=== PATIENT | male | born 1985 | race African-American/Black ===

== ENCOUNTER 2016-07-07 12:23 | Emergency (ER) | payer OTHER ==
--- NOTE | ~2016-07-07 | CR142 ---
[facility] [place] [facility] RADIOLOGY TEXT RESULTS PATIENT: ROBBIN MABRY LOCATION: SED : 87 UNIT #: [id number] AGE: [address]: Andree Lieberman MD SEX: M ORDER DR: [id number] [address] [address] [id number] MR#: [id number] Acc #: [id number] NAME: ROBBIN MABRY : 1985 SEX: M STUDY DATE/TIME: 07/07/2016 12:42 UNIT: SED ROOM: STUDY DESCRIPTION: CR Hand Min 3 Views Rt Attending Physician: Andree Lieberman M.D. Ordering Physician: Andree Lieberman M.D. Primary Care Physician: No Primary Care Physician MEDICAL IMAGING REPORT This report is preliminary unless electronic signature is present. EXAM Right hand 3 views INDICATION 31-year-old male with history of pain and laceration to hand after hitting wall and cutting finger with knife last night. COMPARISON No comparisons. FINDINGS There is a questionable nondisplaced fracture of the base of the middle phalanx of the fifth finger. It is only seen on the AP view and not seen on any other views. Please correlate clinically with the location of the patient's pain. There is some soft tissue swelling adjacent to the fifth metacarpal. There is no dislocation. The joint spaces are maintained. IMPRESSION 1. There is a questionable tiny nondisplaced fracture at the base of the middle phalanx of the fifth finger. Please correlate clinically with location of the patient's pain. This is only seen on the AP view. 2. Soft tissue swelling adjacent to the fifth metacarpal. Dictated by... Stuart Orozco M.D. THIS IS AN ELECTRONICALLY VERIFIED REPORT Stuart Orozco M.D. at 07/07/2016 3:34 PM JOSE/ravi TD: 07/07/2016 15:16 [facility] A Service [facility] RADIOLOGY TEXT RESULTS PATIENT: ROBBIN MABRY LOCATION: [facility] : [birth year] UNIT #: [id number] AGE: [address]: Andree Lieberman MD SEX: M ORDER DR: JOB #: [id number] MEDICAL IMAGING REPORT
[~2016-07-07 12:23] MED LIST: ALBUTEROL INHALER INH; BACLOFEN PO; FLONASE 0.05% N16 G1; HYDROMET SYRUP PO; NO MEDICATIONS; NORCO 5MG/325MG PO; PREDNISONE PO; SUDAFED PO; VOLTAREN75 MG PO; ZITHROMAX PO
== END 2016-07-07 13:30 | disposition home or self-care (01) ==
LOC: SED 12:23
DX: S61.217A Laceration without foreign body of left little finger without damage to nail, initial encounter (principal); F17.200 Nicotine dependence, unspecified, uncomplicated; W22.8XXA Striking against or struck by other objects, initial encounter
CPT/HCPCS: 29130; 73130; 90471; 90715; 99283

== ENCOUNTER 2016-12-14 22:01 | Emergency (ER) | payer OTHER ==
[~2016-12-14] VITALS: Ht 182.9 cm; Wt 127.0 kg
--- NOTE | ~2016-12-14 | CR181 ---
[facility] A Service of [facility] RADIOLOGY TEXT RESULTS PATIENT: ROBBIN MABRY LOCATION: SED : [birth year] UNIT #: [id number] AGE: [address]: JABARI ESPARZA SEX: M ORDER DR: [id number] [place] [address] [id number] E MR#: [id number] Acc #: [id number] NAME: ROBBIN MABRY : 1985 SEX: M STUDY DATE/TIME: 12/15/2016 00:39 UNIT: SED ROOM: STUDY DESCRIPTION: CR Lumbar Spine 2 or 3 Views Attending Physician: Jabari Esparza Ordering Physician: Physician Non-Staff Primary Care Physician: Primary Care Physician No MEDICAL IMAGING REPORT This report is preliminary unless electronic signature is present. EXAM Lumbar spine 12/15 0039 hours INDICATION Right hip pain and right lower extremity radiculopathy that started this morning. No trauma. COMPARISON 03/29/2015. FINDINGS AP and lateral projections of the lumbar segment show good mineralization of both anterior and posterior elements. They are all anatomically normal without indication of fracture, dislocation, or malignant change of a sclerotic or lytic type. There is no congenital defect noted. The sacroiliac joints are normal. IMPRESSION Normal lumbar spine. Dictated by... Teja Acevedo Jr., M.D. THIS IS AN ELECTRONICALLY VERIFIED REPORT Teja cAevedo Jr., M.D. at 12/16/2016 4:22 AM [email or web address]/[email or web address] TD: 12/15/2016 07:25 JOB #: [id number] [facility] A Service of [facility] RADIOLOGY TEXT RESULTS PATIENT: ROBBIN MABRY LOCATION: SED : 87 UNIT #: [id number] AGE: [address]: JABARI ESPARZA SEX: M ORDER DR: MEDICAL IMAGING REPORT Page 1 of 1
[2016-12-14] MEDS ORDERED: NO MEDICATIONS (22:20)
== END 2016-12-15 01:36 | disposition home or self-care (01) ==
LOC: SED 22:01
DX: M54.41 Lumbago with sciatica, right side (principal); F17.210 Nicotine dependence, cigarettes, uncomplicated
CPT/HCPCS: 72100; 96372; 99283; J1885